=== PATIENT | male | born 1960 | race Caucasian/White ===

== ENCOUNTER 2022-07-13 13:00 | Inpatient (IN) | payer OTHER ==
[2022-07-13 15:39] VITALS: BMI 27.2
[2022-07-13] MEDS ORDERED: MAGNESIUM CITRATE 300 ML BOTTLE PO PRN (16:41)
[2022-07-13] MEDS ORDERED: MAGNESIUM HYDROX 2400MG/30ML ORAL SUSPENSION 30 ML CUP PO PRN (16:41)
[2022-07-13] MEDS ORDERED: NALOXONE HCL (KLOXXADO) 8 MG SPRAY NS PRN (16:41)
[2022-07-13] MEDS ORDERED: MAG HYDROX/AL HYDROX/SIMETH 30 ML UNIT-DOSE CUP PO PRN (16:41)
[2022-07-13] MEDS ORDERED: ONDANSETRON *ODT* 4 MG TABLET SL PRN (16:41)
[2022-07-13] MEDS ORDERED: ACETAMINOPHEN 325 MG TABLET (FP) PO PRN (16:41)
[2022-07-13] MEDS ORDERED: BENZOCAINE/MENTHOL (CHLORASEPTIC ) LOZENGE MM PRN (16:41)
[2022-07-13] MEDS ORDERED: LOPERAMIDE HCL 2 MG CAPSULE PO PRN (16:41)
[2022-07-13] MEDS ORDERED: NICOTINE 10 MG CARTRIDGE (INHALER) IH PRN (16:41)
[2022-07-13] MEDS ORDERED: BISMUTH SUBSALICYLATE 524 MG/30 ML PO PRN (16:41)
[2022-07-13] MEDS ORDERED: DICYCLOMINE HCL 10 MG CAPSULE PO PRN (16:41)
[2022-07-13] MEDS: chlordiazePOXIDE HCL 25 MG CAPSULE PO SCH ×2 (17:28→22:03)
[2022-07-13] MEDS: hydrOXYzine PAMOATE 25 MG CAPSULE (FP) PO SCH ×2 (17:29→22:04)
[2022-07-13] MEDS: PRENATAL VITAMINS W/ FOLIC ACID TABLET (FP) PO SCH (18:30)
[2022-07-13] MEDS: chlordiazePOXIDE HCL 25 MG CAPSULE PO PRN (19:55)
[2022-07-13] MEDS: THIAMINE HCL 100 MG TABLET (FP) PO SCH (22:03)
[2022-07-13] MEDS: MELATONIN 5 MG TABLETS PO SCH (22:04)
[2022-07-14] MEDS: METHOCARBAMOL 500 MG TABLET PO PRN ×3 (00:57→17:11)
[2022-07-14] MEDS: IBUPROFEN 600 MG TABLET (FP) PO PRN ×2 (00:57→22:03)
[2022-07-14] MEDS: chlordiazePOXIDE HCL 25 MG CAPSULE PO PRN ×4 (02:05→19:25)
[2022-07-14] MEDS: hydrOXYzine PAMOATE 25 MG CAPSULE (FP) PO SCH ×5 (05:07→22:04)
[2022-07-14] MEDS: chlordiazePOXIDE HCL 25 MG CAPSULE PO SCH ×4 (05:07→22:05)
[2022-07-14] MEDS: PRENATAL VITAMINS W/ FOLIC ACID TABLET (FP) PO SCH (10:09)
[2022-07-14] MEDS: IBUPROFEN 400 MG TABLET (FP) PO PRN ×2 (10:09→17:11)
[2022-07-14 11:33] LABS: HEMATOCRIT 34.8 % (35.4-49); HEMOGLOBIN 11.6 GM/dL (11.7-16.9); MCHC 33.4 g/dl (32.0-35.9); MEAN CELL VOLUME 89.7 fl (80-96); MEAN PLT VOLUME 7.5 fl (7.5-11.1); PLATELET COUNT 268 10^3/uL (134-434); RBC 3.88 M/mm3 (4.00-5.60); RDW 17.7 % (11.9-15.9); WHITE BLOOD COUNT 7.3 K/mm3 (4.0-10.0)
[2022-07-14 11:34] LABS: CALCIUM 9.4 mg/dL (8.5-10.1)
[2022-07-14 11:35] LABS: ALBUMIN 3.3 g/dl (3.4-5.0); BLOOD UREA NITROGEN 13.1 mg/dL (7-18)
[2022-07-14 11:39] LABS: TOT PROT 7.7 g/dl (6.4-8.2)
[2022-07-14] MEDS: LISINOPRIL 20 MG TABLET PO SCH (12:23)
[2022-07-14] MEDS: amLODIPine BESYLATE 5 MG TABLET (FP) PO SCH (12:23)
[2022-07-14] MEDS: PANTOPRAZOLE 40 MG TABLET PO SCH (12:24)
[2022-07-14 12:29] LABS: HIV INTERPRETATION NEGATIVE (NEGATIVE)
[2022-07-14] MEDS: ACETAMINOPHEN 325 MG TABLET (FP) PO PRN (14:21)
[2022-07-14] MEDS: MELATONIN 5 MG TABLETS PO SCH (22:01)
[2022-07-14] MEDS: THIAMINE HCL 100 MG TABLET (FP) PO SCH (22:04)
[2022-07-15] MEDS: hydrOXYzine PAMOATE 25 MG CAPSULE (FP) PO SCH ×5 (06:04→22:01)
[2022-07-15] MEDS: chlordiazePOXIDE HCL 25 MG CAPSULE PO SCH ×4 (06:04→22:01)
[2022-07-15] MEDS: PANTOPRAZOLE 40 MG TABLET PO SCH (10:06)
[2022-07-15] MEDS: LISINOPRIL 20 MG TABLET PO SCH (10:06)
[2022-07-15] MEDS: amLODIPine BESYLATE 5 MG TABLET (FP) PO SCH (10:06)
[2022-07-15] MEDS: PRENATAL VITAMINS W/ FOLIC ACID TABLET (FP) PO SCH (10:06)
[2022-07-15] MEDS: METHOCARBAMOL 500 MG TABLET PO PRN ×2 (10:08→18:44)
[2022-07-15] MEDS: IBUPROFEN 600 MG TABLET (FP) PO PRN (10:08)
[2022-07-15] MEDS: chlordiazePOXIDE HCL 25 MG CAPSULE PO PRN (13:47)
[2022-07-15] MEDS: ACETAMINOPHEN 325 MG TABLET (FP) PO PRN (13:48)
[2022-07-15] MEDS: IBUPROFEN 400 MG TABLET (FP) PO PRN (18:43)
[2022-07-15] MEDS: THIAMINE HCL 100 MG TABLET (FP) PO SCH (22:01)
[2022-07-15] MEDS: MELATONIN 5 MG TABLETS PO SCH (22:02)
[2022-07-16] MEDS ORDERED: chlordiazePOXIDE HCL 10 MG CAPSULE PO PRN
[2022-07-16] MEDS: IBUPROFEN 600 MG TABLET (FP) PO PRN ×3 (03:09→17:17)
[2022-07-16] MEDS: METHOCARBAMOL 500 MG TABLET PO PRN ×3 (03:09→17:17)
[2022-07-16] MEDS: hydrOXYzine PAMOATE 25 MG CAPSULE (FP) PO SCH ×5 (05:09→22:57)
[2022-07-16] MEDS: chlordiazePOXIDE HCL 10 MG CAPSULE PO SCH ×4 (05:10→22:58)
[2022-07-16] MEDS: PANTOPRAZOLE 40 MG TABLET PO SCH (10:14)
[2022-07-16] MEDS: amLODIPine BESYLATE 5 MG TABLET (FP) PO SCH (10:14)
[2022-07-16] MEDS: LISINOPRIL 20 MG TABLET PO SCH (10:14)
[2022-07-16] MEDS: PRENATAL VITAMINS W/ FOLIC ACID TABLET (FP) PO SCH (10:14)
[2022-07-16] MEDS: THIAMINE HCL 100 MG TABLET (FP) PO SCH (22:57)
[2022-07-16] MEDS: MELATONIN 5 MG TABLETS PO SCH (22:59)
[2022-07-17] MEDS: chlordiazePOXIDE HCL 10 MG CAPSULE PO SCH ×2 (04:58→17:20)
[2022-07-17] MEDS: IBUPROFEN 600 MG TABLET (FP) PO PRN ×3 (04:59→22:13)
[2022-07-17] MEDS: hydrOXYzine PAMOATE 25 MG CAPSULE (FP) PO SCH ×5 (04:59→22:10)
[2022-07-17] MEDS: amLODIPine BESYLATE 5 MG TABLET (FP) PO SCH (10:06)
[2022-07-17] MEDS: PRENATAL VITAMINS W/ FOLIC ACID TABLET (FP) PO SCH (10:06)
[2022-07-17] MEDS: LISINOPRIL 20 MG TABLET PO SCH (10:06)
[2022-07-17] MEDS: PANTOPRAZOLE 40 MG TABLET PO SCH (10:06)
[2022-07-17] MEDS: METHOCARBAMOL 500 MG TABLET PO PRN (17:20)
[2022-07-17] MEDS: THIAMINE HCL 100 MG TABLET (FP) PO SCH (22:10)
[2022-07-17] MEDS: MELATONIN 5 MG TABLETS PO SCH (22:11)
[2022-07-18] MEDS ORDERED: chlordiazePOXIDE HCL 10 MG CAPSULE PO ONE (05:00)
[2022-07-18] MEDS: hydrOXYzine PAMOATE 25 MG CAPSULE (FP) PO SCH (05:29)
[2022-07-18 06:21] VITALS: BP 126/80; PULSE 69; RESP 18; TEMP 97.1
[2022-07-18] MEDS: IBUPROFEN 600 MG TABLET (FP) PO PRN (07:08)
[2022-07-18] MEDS: METHOCARBAMOL 500 MG TABLET PO PRN (07:08)
== END 2022-07-18 08:57 | disposition home or self-care (01) | DRG 775 ==
LOC: YASAS 13:00 → Y6N 17:04
PROVIDERS: ADMIT Allergy & Immunology; ATTEND Surgery
PROC: HZ2ZZZZ Detoxification Services for Substance Abuse Treatment (ICD-10-PCS; principal; 2022-07-13)
DX: F10.230 Alcohol dependence with withdrawal, uncomplicated (principal); F41.9 Anxiety disorder, unspecified; I10 Essential (primary) hypertension; K21.9 Gastro-esophageal reflux disease without esophagitis
CPT/HCPCS: 36415; 80053; 85027; 86780; 87389; C9803-CS; Q0162; U0003; U0005